=== PATIENT | male | born 1955 | race Caucasian/White ===

== ENCOUNTER → 2022-06-23 10:23 | Outpatient (CLI) | payer MEDICARE, SELFPAY ==
--- NOTE | ~2022-06-23 | XR_ITS ---
EXAMINATION: XR lumbar spine 6V w bending DATE: 06/23/2022 10:59 INDICATION: Low back pain. TECHNIQUE: 7 views of lumbar spine including flexion and extension views were obtained. COMPARISON: None. FINDINGS: There is 6 degrees levocurvature of lumbar spine. The spine is hypomobile with flexion and extension. Vertebral body heights are normal. There is moderately decreased disc height at L2-L3 and severely decreased disc height at L4-L5 and L5-S1 with endplate remodeling. 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 IMPRESSION: 1. Severe lumbar spondylosis. Reviewed, dictated and finalized at location A. PICKER
--- NOTE | ~2022-06-23 | XR_ITS ---
XR chest 2V DATE: 06/23/2022 10:59 INDICATION: Cough TECHNIQUE: PA and lateral views COMPARISON: 08/25/2013 PA and lateral chest FINDINGS: Normal heart size. There is aortic calcification, ectasia and unfolding. No hilar or medias tinal enlargement. No pulmonary infiltrate or consolidation, pleural effusion or pulmonary vascular c ongestion or pneumothorax. IMPRESSION: No active cardiopulmonary disease Reviewed, dictated and finalized at location A. ITALIST NOCTURNIST PHYSICIAN
== END ==
PROVIDERS: PCP Family Medicine; Visit Provider Family Medicine
DX: R05.9 Cough, unspecified (principal); M47.896 Other spondylosis, lumbar region
CPT/HCPCS: 71046; 72114

== ENCOUNTER 2022-11-20 10:45 | Emergency (ER) | payer MEDICARE, SELFPAY ==
--- NOTE | ~2022-11-20 | XR_ITS ---
XR foot LT min 3V DATE: 11/20/2022 11:18 INDICATION: Swelling and discoloration of second toe. No injury. TECHNIQUE: 4 views COMPARISON: None FINDINGS: Plantar calcaneal enthesopathy. No fracture, dislocation, periosteal reaction or bone destruction of the left foot. Nonspecific soft tissue swelling of second digit. No fracture or dislocation, periosteal reaction or bone destruction of the second digit phalanges. No radiopaque soft tissue foreign body or subcutaneou s emphysema. IMPRESSION: Nonspecific soft tissue swelling of left second digit Plantar calcaneal enthesopathy Reviewed, dictated and finalized at location A.
[2022-11-20 10:58] VITALS: BP 122/86; PULSE 70; RESP 16; TEMP 36.8; O2SAT 98
--- NOTE | 2022-11-20 11:01 | ED.EXTPRO ---
HPI - Extremity Problem General Chief complaint: Extremity Problem,Nontraumatic Stated complaint: INFECTED TOE Time Seen by Provider: 11/20/22 11:01 Source: patient, RN notes reviewed and old records reviewed Mode of arrival: ambulatory Limitations: no limitations History of Present Illness HPI Narrative: 67 year old male who presents to express care with complaints of pain, redness with swelling to the left dorsal toe with warmth and tenderness to site for the past 2 days. Patient reports that he has not had injury to his left 2nd toe or any known bite to the toe. Toe appears red and ecchymotic with raised tissue area to dorsal aspect of left 2nd toe, patient wonders if could be gout, informed patient that we do not do labs that could check his uric acid level. MD Complaint: other (2nd left toe swelling with pain, redness, warmth) Onset (ago): day(s) (2) Severity scale (1-10): 3 Quality: sharp and other (throbbing) Exacerbating factors: weight bearing and walking Related Data Home Medications Medication Instructions Recorded Confirmed aspirin 325 mg tablet 325 mg PO BID 06/21/22 11/20/22 atorvastatin 80 mg tablet 80 mg PO DAILY 06/21/22 11/20/22 diclofenac sodium 75 mg 75 mg PO BID PRN Pain 06/21/22 11/20/22 tablet,delayed release lisinopril 2.5 mg tablet 2.5 mg PO DAILY 06/21/22 11/20/22 metoprolol tartrate 25 mg tablet 25 mg PO BID 06/21/22 11/20/22 Allergies Allergy/AdvReac Type Severity Reaction Status Date / Time No Known Allergies Allergy Mild Verified 11/20/22 10:51 Review of Systems Review of Systems: CONSTITUTIONAL: Denies fever, chills, or sweats. EYES: Denies visual changes, redness, or discharge. ENT: Denies rhinorrhea, congestion, sore throat, or otalgia. CARDIOVASCULAR: Denies chest pain, palpitations, or edema. RESPIRATORY: Denies cough or dyspnea. GASTROINTESTINAL: Denies abdominal pain, nausea, vomiting, or diarrhea. GENITOURINARY: Denies dysuria or hematuria. SKIN: Denies rash or itching. MUSCULOSKELETAL: Denies back pain,positive for pain and swelling to the left dorsal 2nd toe, or myalgia. NEUROLOGIC: Denies headache, numbness, or weakness. PSYCHIATRIC: Denies anxiety or depression. All systems reviewed & are unremarkable except as noted in HPI and below PMFSH Past Medical History Medical History (Updated 11/21/22 @ 00:03 by Hamilton Tony) Acute bilateral low back pain BMI greater than 30 BPH associated with nocturia Cough Elevated hemoglobin Screening for prostate cancer Stage 3 chronic kidney disease Surgical History Surgical History (Updated 11/21/22 @ 20:33 by Stacey Cope NP) History of arthroscopy of right knee Hx of arthroscopy of left knee Family History Family History Other Family history of coronary artery disease Social History Social History (Updated 11/21/22 @ 20:34 by Stacey Cope NP) Smoking status: Former smoker Alcohol intake: current Substance use type: does not use Living arrangements: with family Gender identity (if verbalized by the patient): Male Comments At time of signature, agree with nursing past medical, surgical, social and family history. There is no relevant family history pertinent to the presenting complaint Exam Narrative: GENERAL: Well-appearing, well-nourished, and in no acute distress. HEAD: Normocephalic, atraumatic. EYES: PERRLA and EOMI. ENT: Nares clear, no rhinorrhea or epistaxis. Mucous membranes moist.TM's normal, throat pink with no swelling. NECK: Supple.no lymphadenopathy CHEST: Clear to auscultation. No respiratory distress.SAO2 98% on room air HEART: Regular rate and rhythm. No murmur heard. Normal peripheral pulses. ABDOMEN: Soft, nontender, nondistended, normal active bowel sounds. EXTREMITIES: Normal range of motion. No edema.Exception noted to left 2nd dorsal toe which is red ecchymotic and swollen with warmth and is painful especially with w
== END 2022-11-20 11:51 | disposition home or self-care (01) ==
PROVIDERS: Emergency Provider Registered Nurse; PCP Family Medicine
DX: L03.032 Cellulitis of left toe (principal); Z87.891 Personal history of nicotine dependence; Z79.82 Long term (current) use of aspirin; Z95.5 Presence of coronary angioplasty implant and graft; I13.10 Hypertensive heart and chronic kidney disease without heart failure, with stage 1 through stage 4 chronic kidney disease, or unspecified chronic kidney disease; N18.30 Chronic kidney disease, stage 3 unspecified; I25.2 Old myocardial infarction
CPT/HCPCS: 73630; 99213; G0463

== ENCOUNTER 2022-12-08 10:47 | Outpatient (CLI) | payer MEDICARE, SELFPAY ==
[2022-12-08 11:39] LABS: Basophils Absolute Auto 0.1 K/mm3 (0.0-0.1); Eosinophils Absolute Auto 0.3 K/mm3 (0-0.3); Eosinophils Percent Auto 3.6 % (0-4.4); Hematocrit 50.1 % (42.0-52.0); Hemoglobin 17.7 g/dL (14.0-18.0); Immature Granulocyte Absolute 0.05 K/mm3 (0.00-0.031); Immature Granulocyte Percent A 0.7 % (0-0.5); Lymphocytes Absolute Auto 1.97 K/mm3 (0.9-3.2); Lymphocytes Percent Auto 27.4 % (18.3-44.2); Mean Corpuscular HGB Conc 35.3 g/dl (32-36); Mean Corpuscular Hemoglobin 32.8 pg (26-34); Mean Corpuscular Volume 92.9 fl (80-100); Mean Platelet Volume 8.8 fl (7.4-10.4); Monocytes Absolute Auto 0.8 K/mm3 (0.1-0.6); Monocytes Percent Auto 10.4 % (2.6-8.5); Neutrophils Absolute Auto 4.1 K/mm3 (1.3-6.7); Neutrophils Percent Auto 56.9 % (45.5-73.1); Platelet Count Result 249 k/mm3 (150-375); Red Blood Count 5.39 M/mm3 (4.6-6.20); Red Cell Distribution Width 12.8 % (11.5-14.5); White Blood Count 7.2 K/mm3 (4.5-10.0)
[2022-12-08 11:52] LABS: Alanine Aminotransferase 38 U/L (6-50); Albumin Level 4.5 g/dL (3.5-5.1); Alkaline Phosphatase 104 U/L (38-126); Anion Gap 6 mmol/L (8-16); Aspartate Amino Transferase 36 U/L (17-59); Bilirubin,Total 1.1 mg/dL (0.2-1.3); Blood Urea Nitrogen 21 mg/dL (9-20); Calcium 9.4 mg/dL (8.4-10.2); Carbon Dioxide 26 mmol/L (22-30); Chloride 104 mmol/L (98-107); Estimated Glomerular Filt Rate > 60; Glucose 101 mg/dL (65-110); Potassium 4.7 mmol/L (3.4-5.0); Sodium 136 mmol/L (137-145); Uric Acid 6.9 mg/dL (3.5-8.5)
== END 2022-12-08 10:48 | disposition home or self-care (01) ==
PROVIDERS: PCP Family Medicine; Visit Provider Nurse Practitioner Family
DX: M19.90 Unspecified osteoarthritis, unspecified site (principal); N18.30 Chronic kidney disease, stage 3 unspecified; E78.2 Mixed hyperlipidemia
CPT/HCPCS: 36415; 80053; 84550; 85025